=== PATIENT | female | born 1950 | race Caucasian/White ===

== ENCOUNTER 2021-09-25 10:03 | Outpatient (CLI) | payer OTHER | END 2021-09-25 10:06 | disposition home or self-care (01) | LOC: SONOGRAMA 10:03 | PROVIDERS: ATTEND Pathology Anatomic Pathology & Clinical Pathology | DX: E07.89 Other specified disorders of thyroid (principal); D34 Benign neoplasm of thyroid gland; E04.8 Other specified nontoxic goiter ==